=== PATIENT | male | born 1940 | race Caucasian/White ===

== ENCOUNTER 2024-10-11 10:40 | Emergency (ER) | payer OTHER, SELFPAY ==
--- NOTE | 2024-10-11 10:42 | ED.GENADUL_ITS ---
Discharge Plan Disposition Patient Disposition: Home Condition: Improving Discharge Details Clinical Impression: Acute urinary retention, Acute UTI Primary Care Provider: Jose G Espinal ED Provider: Coleman Saldana Home Meds and New Rx's Prescriptions: New cephalexin 500 mg capsule 500 mg PO BID 7 Days Qty: 14 0RF Discharge Instructions Instructions: Urinary Retention, Urinary Tract Infection, Adult ED Additional Instructions: I attempted to speak both with your urology team and your primary care doctor but was unsuccessful. I was able to consult with our urology team here. Please take Keflex as directed. Be sure to have adequate hydration over the weekend. It is imperative that you reach out to both your primary care provider and especially urology team later today to make them aware of your ER visit and need for outpatient follow-up. If you do not hear from them today or over the weekend, please contact them again first thing Monday morning. You will leave the Bhatt catheter in place until otherwise instructed by your urology team. Please watch for new or worsening symptoms including but excluded to a fever, abdominal pain, chills, back pain, decreased urinary output, and return immediately to the ER. HPI General Mode of arrival: ambulatory . Date/Time Provider Initiated Documentation: 10/11/24 10:41 . Limitations to Documentation: no limitations . Information obtained by: patient . History of Present Illness 84 year old M presents to the emergency department with the chief complaint of Urinary retention, described as moderate, with intensity rated at 6. Quality is described as aching, and is localized to the abdomen and pelvis. Patient reports no radiation. Patient started experiencing this day(s) (5) and it has been constant (Progressive). No relieving factors improve symptom(s), No exacerbating factors reported . Patient notes nausea/vomiting (Vomiting x 1 today). Patient did receive the following treatments prior to arrival, none Related Data Home Medications ?Medication ?Instructions ?Recorded ?Confirmed cephalexin 500 mg capsule 500 mg PO BID 7 days #14 caps 10/11/24 Previous Rx's ?Medication ?Instructions ?Recorded cephalexin 500 mg capsule 500 mg PO BID 7 days #14 caps 10/11/24 Allergies Allergy/AdvReac Type Severity Reaction Status Date / Time No Known Allergies Allergy Unverified 10/11/24 10:48 Review of Systems Constitutional Constitutional: Denies chills, Denies fatigue, Denies fever(s) and Denies weakness Cardiovascular Cardiovascular: Denies chest pain and Denies dyspnea Respiratory Respiratory: Denies dyspnea Gastrointestinal Gastrointestinal: Reports abdominal pain (Lower pressure), Reports constipation (No bowel movement in 5 days) and Denies nausea Genitourinary Genitourinary: Denies hematuria, Denies dysuria, Denies testicular pain, Reports urinary frequency and Reports urinary hesitancy Musculoskeletal Musculoskeletal: Denies back pain Integumentary/Breasts Skin/Breast: Denies rash Neurologic Neurologic: Denies weakness Endocrine Endocrine: Denies fatigue Hematologic/Lymphatic Hematologic/Lymphatic: Denies easy bleeding Exam Const General: cooperative, healthy appearing, comfortable and no acute distress Orientation: alert, awake and oriented x3 HENMT Head: normal to inspection, normocephalic and atraumatic Face and sinus: normal facial exam Mouth: moist mucous membranes Throat: posterior oropharynx normal Eyes General: appearance normal, both eyes and all related structures Conjunctivae: conjunctivae normal Neck Neck: normal visual inspection, full ROM, no meningeal signs, trachea midline and supple Resp Effort & Inspection: normal respiratory effort and able to speak in complete sentences Auscultation: clear to auscultation bilaterally Cardio Rate: regular rate Rhythm: regular rhythm GI Inspection: normal to inspection Palpation: not soft, not firm, no guarding and tender (Diffuse minimal lower) Auscultation: normal bowel sounds Male General Exam: Yes normal external exam Penis: normal penis Meatus: meatus normal Scrotum: scrotum normal Testes: normal Back/Spine/Pelvis Back: no CVA tenderness and No back tenderness Skin General skin exam: no rashes or lesions noted Neuro General: patient alert, patient awake, patient oriented x3, moves all extremities and no focal motor deficits Cognition: normal cognition Speech: speech normal Gait: normal gait Motor: muscle tone normal throughout Extrem General: normal to inspection, full ROM and capillary refill normal Psych Appearance: grossly normal Mental Status: mental status grossly normal Medical Decision Making This is an 84-year-old male presenting for lower abdominal pressure and urinary retention. Patient states he had stents placed in the bilateral kidneys 1 week ago at the [facility] in [place]. Procedure went well and subsequently discharged home. removed catheter as directed on Monday. Patient reports that since Monday he has had some lower abdominal pressure associated with 1 episode of vomiting today. Denies any nausea to me. States he has had multiple small episodes of voiding but feels like his bladder is not completely emptying. Denies dysuria. Denies fever. Denies back pain. No bowel movement since last Monday. Patient also reports that he is being worked up by oncology for potential prostate cancer, has an appointment on 10/22/2024. Patient reports that he is otherwise healthy and does not currently take any medications. Clinically he appears well, nontoxic. Bladder scanner reveals over 800 cc of urine. Will obtain IV access, routine screening laboratory values, urinalysis, and will place indwelling Bhatt catheter. In the meantime we will attempt to get records from the [facility] at [place]. Upon reevaluation Bhatt catheter has drained about 1000 cc of urine. Urine is dark but not grossly bloody. Patient states that he feels much better, in fact asymptomatic. Laboratory values reveal a WBC of 9.1 hemoglobin 9.9 hematocrit 29.8 platelet count of 415. Absolute neutrophils of 7.27. Creatinine 2.7 with a GFR of 22.40. Unfortunately do not know his baseline lab values. Urinalysis reveals large blood, small leuk esterase, greater than 50 red and white cells. Culture indicated. Discussed labs with patient and family, they do not know his baseline. Deny black tarry stools or bright red blood in his stools. I have not received any information regarding the patient from the [facility]. I have requested to consult with urology at the [facility]. Concern for an infected stent. Would like their input on if they would like additional imaging and antibiotic recommendations. I also attempted to reach out to his PCP Merline Lyon MD but this too unfortunately was unsuccessful. Unfortunately after a second page I still did not hear back from the urology team at the [facility] in [place]. I then paged our urology team and was able to speak with Dr. Crowe. He was reassured that the patient did not have a fever, white count, or appear toxic or septic. Patient would have likely had IV antibiotics at time of cystoscopy stent placement. Infected stent only 1 week after the procedure is unlikely. Recommends treating with oral antibiotics, believes Keflex twice daily is a reasonable choice. Unfortunately no prior records to review, no prior culture and sensitivities. Did not recommend additional imaging. Will encourage p.o. fluid intake given unknown baseline creatinine and GFR. Will hold on IV fluids as there is a national shortage. Will leave indwelling Bhatt catheter in place. Will recommend that the patient contact his urology team to make them aware of his symptoms and ER visit. He will need close outpatient follow-up. Would recommend leaving Bhatt catheter in until he is directed otherwise. Patient feels well and both patient and spouse are comfortable with this plan. Discussed the importance of watching for new or worsening symptoms such as increased pain, fever, decreased urinary output, etc. and returning immediately to the ER. After the patient has been discharged I did receive a fax from the [facility]. Most recent labs from August 28, 2024 reveal a white blood cell count of 6.4 hemoglobin 10.6 hematocrit 32.7 platelet count 375. Blood count slightly lower today but do not appear emergent. No signs of any active bleeding now. Creatinine on 08/28/2024 was 2.6, on 09/23/2024 it was 2.7, this appears to be his baseline. Further review reveals bilateral ureteral stent placement and prostate biopsy on 10/04/2024. I did request that these records get scanned into our system. Medical Records Medical records reviewed: Yes I reviewed the patient's medical records. Lab Data Lab results reviewed: Yes I reviewed the patient's lab results. Labs: 10/11/24 11:35 Urine - Reflex from [facility] Urine Culture - Pending Laboratory Tests Range/Units 10/11/24 10/11/24 11:32 11:35 WBC (4.4-10.8) 10^3/uL 9.10 RBC (4.36-5.78) 10^6/uL 3.31 L Hgb (13.5-17.5) g/dL 9.9 L Hct (40.0-50.0) % 29.8 L MCV (80-95) fL 90 MCH (27.0-33.0) pg 29.9 MCHC (32.0-36.0) % 33.2 RDW (11.8-14.1) % 13.3 Plt Count (130-400) 10^3/uL 415 H MPV (8.0-11.0) fL 9.0 Immature Gran % % 0.3 Neutrophils % % 79.9 Lymphocytes % % 7.4 Monocytes % % 12.2 Eosinophils % % 0.1 Basophils % % 0.1 Nucleated RBC % (0.0-0.3) % 0.0 Absolute Neutrophils (1.2-6.7) 10^3/uL 7.27 H Absolute Lymphocytes (1.2-3.4) 10^3/uL 0.67 L Absolute Monocytes (0.1-0.8) 10^3/uL 1.11 H Absolute Eosinophils (0.0-0.7) 10^3/uL 0.01 Absolute Basophils (0.0-0.2) 10^3/uL 0.01 Sodium (136-145) mmol/L 136 Potassium (3.5-5.1) mmol/L 3.4 L Chloride (98-107) mmol/L 92 L Carbon Dioxide (21.0-32.0) mmol/L 35.8 H Anion Gap (3-11) mmol/L 8.2 BUN (7-18) mg/dL 55 H Creatinine (0.70-1.30) mg/dL 2.7 H Est GFR (CKD-EPI 2020) (mL/min/1.73m2) 22.40 Glucose (74-106) mg/dL 117 H Calcium (8.5-10.1) mg/dL 9.1 Total Bilirubin (0.2-1.0) mg/dL 0.55 AST (15-37) U/L 23 ALT (16-63) U/L 14 L Alkaline Phosphatase (46-116) U/L 75 Total Protein (6.4-8.2) g/dL 7.1 Albumin (3.4-5.0) g/dL 3.4 Urine Color (Yellow) Yellow Urine Clarity (Clear) Cloudy Urine pH (5-8) 7.0 Ur Specific Harris (1.005-1.025) 1.015 Urine Protein (Neg-Trace) mg/dL 100 H Urine Ketones (Negative) mg/dL Negative Urine Blood (Negative) Large H Urine Nitrite (Negative) Negative Urine Bilirubin (Negative) Negative Urine Urobilinogen (Up to 0.2) mg/dL 0.2 Ur Leukocyte Esterase (Negative) Small H Urine RBC (0-2) HPF >50 H Urine WBC (0-5) HPF >50 H Ur Epithelial Cells Not Applicable Urine Crystals Not Applicable Urine Bacteria Not Applicable Urine Mucus Not Applicable Ur Culture Indicated? Yes Urine Glucose (Negative) mg/dL Negative Quality:SDOH Health Related Social Needs: No Data to Display PFSH All Active Problems (Updated 10/11/24 @ 14:22 by DEEP Booth) Acute UTI (Acute) Acute urinary retention (Acute) Social History Smoking/Tobacco Use Status: Former Tobacco Use Smoking risk assessment performed?: Yes Alcohol Intake: never Drug use: Never Substance use type: does not use Housing: house Do you feel safe at home: Yes Do you feel safe in your relationship?: Yes
[2024-10-11 10:45] VITALS: BP 130/60; PULSE 57; RESP 14; TEMP 36.4; O2SAT 98
[2024-10-11] MEDS: Lidocaine 2% Jelly 11 ML SYR (11:31)
[2024-10-11 11:41] LABS: Abs Immature Grans 0.03 10^3/uL (0.0-0.06); Absolute Basophil Count 0.01 10^3/uL (0.0-0.2); Absolute Eosinophil Count 0.01 10^3/uL (0.0-0.7); Absolute Lymphocyte Count 0.67 10^3/uL (1.2-3.4); Absolute Monocyte Count 1.11 10^3/uL (0.1-0.8); Absolute Neutrophil Count 7.27 10^3/uL (1.2-6.7); Basophils % 0.1 %; Eosinophils % 0.1 %; HCT 29.8 % (40.0-50.0); HGB 9.9 g/dL (13.5-17.5); Immature Grans % 0.3 %; Lymphocytes % 7.4 %; MCH 29.9 pg (27.0-33.0); MCHC 33.2 % (32.0-36.0); MCV 90 fL (80-95); Monocytes % 12.2 %; Neutrophils % 79.9 %; Platelet Count 415 10^3/uL (130-400); RBC 3.31 10^6/uL (4.36-5.78); RDW 13.3 % (11.8-14.1); RDW-SD 43.9 fL
[2024-10-11 11:49] LABS: Bilirubin Negative (Negative); Blood Large (Negative); Clarity Cloudy (Clear); Glucose Negative (Negative); Ketones Negative (Negative); Leukocyte Esterase Small (Negative); Nitrite Negative (Negative); Specific Gravity 1.015 (1.005-1.025); Urobilinogen 0.2 mg/dL (Up to 0.2)
[2024-10-11 11:56] LABS: C & S Indicated? Yes; RBC >50 HPF (0-2); WBC >50 HPF (0-5)
[2024-10-11 12:01] LABS: ALT 14 U/L (16-63); AST 23 U/L (15-37); Albumin 3.4 g/dL (3.4-5.0); Alkaline Phosphatase 75 U/L (46-116); Anion Gap 8.2 mmol/L (3-11); BUN 55 mg/dL (7-18); Bilirubin, Total 0.55 mg/dL (0.2-1.0); CO2 35.8 mmol/L (21.0-32.0); CREATININE 2.7 mg/dL (0.70-1.30); Calcium 9.1 mg/dL (8.5-10.1); Chloride 92 mmol/L (98-107); Glucose 117 mg/dL (74-106); Potassium 3.4 mmol/L (3.5-5.1); Sodium 136 mmol/L (136-145); Total Protein 7.1 g/dL (6.4-8.2)
[2024-10-11] MEDS: Cephalexin 500 MG CAP PO (13:33)
[2024-10-11 14:23] VITALS: BP 114/78; PULSE 74; RESP 20; TEMP 36.7; O2SAT 95
[2024-10-11 14:33] VITALS: BP 114/78; PULSE 74; RESP 20; TEMP 36.7; O2SAT 96
== END 2024-10-11 14:34 | disposition home or self-care (01) ==
PROVIDERS: Emergency Provider Physician Assistant; PCP Internal Medicine
DX: N39.0 Urinary tract infection, site not specified; R33.9 Retention of urine, unspecified; Z96.0 Presence of urogenital implants
CPT/HCPCS: 36415; 80053; 99283; 81003; 81015; 85025; 87086; 99284

== ENCOUNTER 2024-12-30 04:15 | Outpatient (CLI) | payer OTHER, SELFPAY ==
[2024-12-30 10:19] LABS: Abs Immature Grans 0.05 10^3/uL (0.0-0.06); Absolute Basophil Count 0.05 10^3/uL (0.0-0.2); Absolute Eosinophil Count 0.01 10^3/uL (0.0-0.7); Absolute Lymphocyte Count 1.06 10^3/uL (1.2-3.4); Absolute Monocyte Count 1.38 10^3/uL (0.1-0.8); Absolute Neutrophil Count 6.49 10^3/uL (1.2-6.7); Basophils % 0.6 %; Eosinophils % 0.1 %; HCT 29.9 % (40.0-50.0); HGB 9.6 g/dL (13.5-17.5); Immature Grans % 0.6 %; Lymphocytes % 11.7 %; MCH 29.2 pg (27.0-33.0); MCHC 32.1 % (32.0-36.0); MCV 91 fL (80-95); MPV 8.6 fL (8.0-11.0); Monocytes % 15.3 %; Neutrophils % 71.7 %; Platelet Count 503 10^3/uL (130-400); RBC 3.29 10^6/uL (4.36-5.78); RDW 14.9 % (11.8-14.1); RDW-SD 50.1 fL; WBC 9.04 10^3/uL (4.4-10.8)
[2024-12-30 10:54] LABS: ALT 26 U/L (16-63); AST 20 U/L (15-37); Alkaline Phosphatase 75 U/L (46-116); Anion Gap 11.2 mmol/L (3-11); BUN 50 mg/dL (7-18); Bilirubin, Total 0.4 mg/dL (0.2-1.0); CO2 27.8 mmol/L (21.0-32.0); CREATININE 2.5 mg/dL (0.70-1.30); Calcium 9.4 mg/dL (8.5-10.1); Chloride 100 mmol/L (98-107); Estimated GFR 24.56 (mL/min/1.73m2); Glucose 102 mg/dL (74-106); Potassium 4.3 mmol/L (3.5-5.1); Sodium 139 mmol/L (136-145); Total Protein 7.9 g/dL (6.4-8.2)
[2025-01-01 10:00] LABS: PSA, Ultrasensitive 15.4 ng/mL (<= 7.2)
[2025-01-03 12:16] LABS: Testosterone, Total <7.0 ng/dL (240-950)
== END 2024-12-30 04:16 | disposition home or self-care (01) ==
LOC: LBO 04:15
PROVIDERS: PCP Internal Medicine; Visit Provider Internal Medicine
DX: C61 Malignant neoplasm of prostate (principal)
CPT/HCPCS: 36415; 80053; 84153; 84403; 85025

== ENCOUNTER 2025-02-04 09:41 | Outpatient (CLI) | payer OTHER, SELFPAY ==
[2025-02-04 10:10] LABS: Abs Immature Grans 0.02 10^3/uL (0.0-0.06); Absolute Basophil Count 0.06 10^3/uL (0.0-0.2); Absolute Eosinophil Count 0.36 10^3/uL (0.0-0.7); Absolute Monocyte Count 0.87 10^3/uL (0.1-0.8); Absolute Neutrophil Count 4.26 10^3/uL (1.2-6.7); Basophils % 0.9 %; Eosinophils % 5.5 %; HCT 32.9 % (40.0-50.0); HGB 10.3 g/dL (13.5-17.5); Immature Grans % 0.3 %; Lymphocytes % 15.2 %; MCH 28.5 pg (27.0-33.0); MCHC 31.3 % (32.0-36.0); MCV 91 fL (80-95); MPV 9.7 fL (8.0-11.0); Monocytes % 13.2 %; Neutrophils % 64.9 %; Platelet Count 366 10^3/uL (130-400); RBC 3.61 10^6/uL (4.36-5.78); RDW 17.3 % (11.8-14.1); WBC 6.57 10^3/uL (4.4-10.8)
[2025-02-04 10:42] LABS: ALT 32 U/L (16-63); AST 31 U/L (15-37); Albumin 3.5 g/dL (3.4-5.0); Alkaline Phosphatase 74 U/L (46-116); Anion Gap 7.1 mmol/L (3-11); BUN 50 mg/dL (7-18); Bilirubin, Total 0.5 mg/dL (0.2-1.0); CO2 25.9 mmol/L (21.0-32.0); CREATININE 2.2 mg/dL (0.70-1.30); Calcium 9.1 mg/dL (8.5-10.1); Chloride 107 mmol/L (98-107); Estimated GFR 28.63 (mL/min/1.73m2); Glucose 100 mg/dL (74-106); Potassium 4.5 mmol/L (3.5-5.1); Sodium 140 mmol/L (136-145); Total Protein 7.1 g/dL (6.4-8.2)
[2025-02-06 10:00] LABS: PSA, Ultrasensitive 2.9 ng/mL (<= 7.2)
[2025-02-08 13:28] LABS: Testosterone, Total <7.0 ng/dL (240-950)
== END 2025-02-04 09:42 | disposition home or self-care (01) ==
LOC: LBO 09:42
PROVIDERS: PCP Internal Medicine; Visit Provider Internal Medicine
DX: C61 Malignant neoplasm of prostate (principal)
CPT/HCPCS: 36415; 80053; 84153; 84403; 85025

== ENCOUNTER 2025-03-26 02:34 | Outpatient (CLI) | payer OTHER, SELFPAY ==
[2025-03-26 08:41] LABS: Abs Immature Grans 0.02 10^3/uL (0.0-0.06); Absolute Basophil Count 0.05 10^3/uL (0.0-0.2); Absolute Eosinophil Count 0.17 10^3/uL (0.0-0.7); Absolute Lymphocyte Count 1.02 10^3/uL (1.2-3.4); Absolute Monocyte Count 0.63 10^3/uL (0.1-0.8); Absolute Neutrophil Count 6.11 10^3/uL (1.2-6.7); Basophils % 0.6 %; Eosinophils % 2.1 %; HCT 34.6 % (40.0-50.0); Immature Grans % 0.3 %; Lymphocytes % 12.8 %; MCH 29.6 pg (27.0-33.0); MCHC 31.8 % (32.0-36.0); MCV 93 fL (80-95); MPV 9.2 fL (8.0-11.0); Monocytes % 7.9 %; Neutrophils % 76.3 %; Platelet Count 334 10^3/uL (130-400); RBC 3.72 10^6/uL (4.36-5.78); RDW 16.2 % (11.8-14.1); RDW-SD 55.7 fL
[2025-03-26 09:28] LABS: ALT 36 U/L (16-63); AST 29 U/L (15-37); Albumin 3.4 g/dL (3.4-5.0); Alkaline Phosphatase 103 U/L (46-116); Anion Gap 3.9 mmol/L (3-11); BUN 41 mg/dL (7-18); Bilirubin, Total 0.4 mg/dL (0.2-1.0); CO2 30.1 mmol/L (21.0-32.0); CREATININE 2.2 mg/dL (0.70-1.30); Calcium 8.9 mg/dL (8.5-10.1); Chloride 106 mmol/L (98-107); Estimated GFR 28.46 (mL/min/1.73m2); Glucose 103 mg/dL (74-106); Potassium 4.1 mmol/L (3.5-5.1); Sodium 140 mmol/L (136-145); Total Protein 6.7 g/dL (6.4-8.2)
[2025-03-30 16:50] LABS: Testosterone, Total <7.0 ng/dL (240-950)
[2025-03-31 11:16] LABS: PSA, Ultrasensitive 1.2 ng/mL (<= 7.2)
== END 2025-03-26 02:35 | disposition home or self-care (01) ==
LOC: LBO 02:36
PROVIDERS: PCP Internal Medicine; Visit Provider Internal Medicine
DX: C61 Malignant neoplasm of prostate (principal)
CPT/HCPCS: 36415; 80053; 84153; 84403; 85025

== ENCOUNTER 2025-04-29 02:57 | Outpatient (CLI) | payer OTHER, SELFPAY ==
[2025-04-29 09:46] LABS: Abs Immature Grans 0.02 10^3/uL (0.0-0.06); HCT 37.2 % (40.0-50.0); HGB 12.1 g/dL (13.5-17.5); Immature Grans % 0.3 %; MCH 29.9 pg (27.0-33.0); MCHC 32.5 % (32.0-36.0); MCV 92 fL (80-95); MPV 9.4 fL (8.0-11.0); Platelet Count 326 10^3/uL (130-400); RBC 4.05 10^6/uL (4.36-5.78); RDW 14.0 % (11.8-14.1); RDW-SD 47.8 fL; WBC 7.72 10^3/uL (4.4-10.8)
[2025-04-29 10:23] LABS: ALT 24 U/L (16-63); AST 26 U/L (15-37); Albumin 3.6 g/dL (3.4-5.0); Alkaline Phosphatase 80 U/L (46-116); Anion Gap 8.9 mmol/L (3-11); BUN 51 mg/dL (7-18); Bilirubin, Total 0.4 mg/dL (0.2-1.0); CO2 27.1 mmol/L (21.0-32.0); Calcium 9.0 mg/dL (8.5-10.1); Chloride 106 mmol/L (98-107); Estimated GFR 26.98 (mL/min/1.73m2); Glucose 97 mg/dL (74-106); Potassium 4.3 mmol/L (3.5-5.1); Sodium 142 mmol/L (136-145); Total Protein 7.0 g/dL (6.4-8.2)
== END 2025-04-29 02:58 | disposition home or self-care (01) ==
LOC: LBO 02:57
PROVIDERS: PCP Internal Medicine; Visit Provider Internal Medicine
DX: C61 Malignant neoplasm of prostate (principal)
CPT/HCPCS: 36415; 80053; 84153; 84403; 85025

== ENCOUNTER 2025-06-10 02:33 | Outpatient (CLI) | payer OTHER, SELFPAY ==
[2025-06-10 10:12] LABS: Abs Immature Grans 0.04 10^3/uL (0.0-0.06); HCT 35.5 % (40.0-50.0); HGB 11.2 g/dL (13.5-17.5); Immature Grans % 0.4 %; MCH 28.9 pg (27.0-33.0); MCHC 31.5 % (32.0-36.0); MCV 92 fL (80-95); MPV 9.3 fL (8.0-11.0); Platelet Count 399 10^3/uL (130-400); RBC 3.87 10^6/uL (4.36-5.78); RDW 14.3 % (11.8-14.1); RDW-SD 47.5 fL; WBC 10.42 10^3/uL (4.4-10.8)
[2025-06-10 10:54] LABS: ALT 19 U/L (16-63); AST 18 U/L (15-37); Albumin 3.3 g/dL (3.4-5.0); Alkaline Phosphatase 86 U/L (46-116); Anion Gap 8.6 mmol/L (3-11); BUN 32 mg/dL (7-18); Bilirubin, Total 0.4 mg/dL (0.2-1.0); CO2 28.4 mmol/L (21.0-32.0); Calcium 9.4 mg/dL (8.5-10.1); Chloride 106 mmol/L (98-107); Estimated GFR 31.90 (mL/min/1.73m2); Glucose 102 mg/dL (74-106); Potassium 4.0 mmol/L (3.5-5.1); Sodium 143 mmol/L (136-145); Total Protein 6.6 g/dL (6.4-8.2)
== END 2025-06-10 02:34 | disposition home or self-care (01) ==
LOC: LBO 02:33
PROVIDERS: PCP Internal Medicine; Visit Provider Internal Medicine
DX: C61 Malignant neoplasm of prostate (principal)
CPT/HCPCS: 36415; 80053; 84153; 84403; 85025

== ENCOUNTER 2025-09-09 03:25 | Outpatient (CLI) | payer OTHER, SELFPAY ==
[2025-09-09 09:22] LABS: Abs Immature Grans 0.04 10^3/uL (0.0-0.06); HCT 31.7 % (40.0-50.0); HGB 10.3 g/dL (13.5-17.5); Immature Grans % 0.5 %; MCH 29.5 pg (27.0-33.0); MCHC 32.5 % (32.0-36.0); MCV 91 fL (80-95); MPV 8.9 fL (8.0-11.0); Platelet Count 406 10^3/uL (130-400); RBC 3.49 10^6/uL (4.36-5.78); RDW 13.9 % (11.8-14.1); RDW-SD 46.4 fL; WBC 8.72 10^3/uL (4.4-10.8)
[2025-09-09 09:56] LABS: ALT 15 U/L (10-49); AST 25 U/L (<34); Albumin 3.8 g/dL (3.4-5.0); Alkaline Phosphatase 65 U/L (46-116); Anion Gap 10.3 mmol/L (3-11); BUN 32 mg/dL (9-23); Bilirubin, Total 0.30 mg/dL (0.2-1.2); CO2 29.7 mmol/L (20.0-31.0); Calcium 8.8 mg/dL (8.3-10.6); Chloride 104 mmol/L (98-107); Glucose 91 mg/dL (74-106); Potassium 3.1 mmol/L (3.5-5.1); Sodium 144 mmol/L (136-145); Total Protein 6.5 g/dL (5.7-8.2)
== END 2025-09-09 03:26 | disposition home or self-care (01) ==
LOC: LBO 03:25
PROVIDERS: PCP Internal Medicine; Visit Provider Internal Medicine
DX: C61 Malignant neoplasm of prostate (principal)
CPT/HCPCS: 36415; 80053; 84153; 84403; 85025

== ENCOUNTER 2025-09-19 17:36 | Emergency (ER) | payer OTHER, SELFPAY ==
[2025-09-19] VITALS (57 sets, daily range): BP systolic 135–201; BP diastolic 59–142; PULSE 60–114; RESP 13–30; TEMP 37.2–39.4; O2SAT 88–100
--- NOTE | 2025-09-19 17:30 | RT.EKG_ITS ---
APPROVED REPORT Exam: Resting ECG Reason for Exam: possible sepsis Patient Location: E HR:87 bpm ECG Measurements Heart Rate 87 AXIS ME 139 P 55 QRSd 82 QRS -21 QT 367 T 62 QTc 439 Conclusion Sinus rhythm...normal P axis, V-rate 60- 99 Atrial premature complexes...SV complexes w/ short R-R intvls Nonspecific T abnormalities, lateral leads...T <-0.10mV, I aVL V5 V6
--- NOTE | 2025-09-19 17:30 | DI.RAD_ITS ---
Exam(s) XR PORTABLE CHEST AP EXAM: XR PORTABLE CHEST AP CLINICAL HISTORY: shortness of breath, fever TECHNIQUE: 2D digital imaging was performed of the chest. One image was obtained. An AP view was obtained. COMPARISON: No exams were available for comparison FINDINGS: MEDIASTINUM: Normal. HEART: Normal. PULMONARY VASCULATURE: Normal. LUNGS: No focal consolidating infiltrates are seen in the lungs. PLEURAL SPACE: No pleural effusion or pneumothorax. BONE:There are sclerotic foci seen in the bones consistent with metastatic disease. This is best appreciated in the glenoid region of the left scapula and multiple ribs. OTHER FINDINGS:Normal. IMPRESSION: 1. There are no focal consolidating infiltrates. 2. Sclerotic osseous metastatic disease. 3. The preliminary [facility] report was reviewed. DATA REPOSITORY: RADIATION DOSE DELIVERED:
[2025-09-19 18:03] LABS: Abs Immature Grans 0.08 10^3/uL (0.0-0.06); HCT 31.7 % (40.0-50.0); HGB 10.5 g/dL (13.5-17.5); Immature Grans % 0.5 %; MCH 28.9 pg (27.0-33.0); MCHC 33.1 % (32.0-36.0); MCV 87 fL (80-95); MPV 8.9 fL (8.0-11.0); Platelet Count 426 10^3/uL (130-400); RBC 3.63 10^6/uL (4.36-5.78); RDW 14.6 % (11.8-14.1); RDW-SD 46.5 fL; WBC 14.85 10^3/uL (4.4-10.8)
[2025-09-19 18:07] LABS: Glucose Negative (Negative)
[2025-09-19] MEDS: ACETAMINOPHEN 500 MG/50 ML BAG 200 MG IVPB ×2 (18:08→22:39)
[2025-09-19] MEDS: cefTRIAXone 2 GM/50 ML BAG IVPB (18:10)
[2025-09-19] MEDS: Normal Saline 500 ML IV (18:10)
[2025-09-19 18:24] LABS: C & S Indicated? Yes; WBC >50 HPF (0-5)
[2025-09-19 18:29] LABS: RBC Morphology Normal
[2025-09-19 18:30] LABS: ALT 12 U/L (10-49); AST 18 U/L (<34); Albumin 3.9 g/dL (3.2-5.0); Alkaline Phosphatase 75 U/L (46-116); Anion Gap 7.1 mmol/L (3-11); BUN 29 mg/dL (9-23); Bilirubin, Total 0.80 mg/dL (0.2-1.2); CO2 29.9 mmol/L (20.0-31.0); Calcium 8.7 mg/dL (8.3-10.6); Chloride 100 mmol/L (98-107); Glucose 131 mg/dL (74-106); Potassium 3.1 mmol/L (3.5-5.1); Sodium 137 mmol/L (136-145); Total Protein 6.8 g/dL (5.7-8.2)
--- NOTE | 2025-09-19 18:32 | DI.CT_ITS ---
Exam(s) CT ABDOMEN PELVIS WO EXAM: CT ABDOMEN PELVIS WO CLINICAL HISTORY: renal failure, uti. TECHNIQUE: Imaging Protocol: Axial computed tomography images with coronal and sagittal reformatted images were created and reviewed. COMPARISON: US US RENAL from 09/10/2024 FINDINGS: The examination is limited due to patient motion artifact. ABDOMEN: Lung Bases: There are bilateral basilar infiltrates present. Liver: Normal density. No measurable mass. Gallbladder and biliary tract: No radiodense calculus or biliary ductal dilation. Pancreas: Normal density, no abnormal calcifications or inflammatory process. Spleen: Normal. Kidneys: There is a right nephroureteral stent. There is no right hydronephrosis. There is a left nephroureteral stent. The proximal pigtail is seen in the proximal ureter. There is moderate dilatation of the left renal collecting system.There is no nephrolithiasis. No masses seen. Adrenal glands: No mass is seen. Lymph nodes: Within normal limits. Abdominal Aorta: Atherosclerotic calcification is seen. No aneurysmal dilatation is present. PELVIS: Bladder:Symmetric distention, no gross wall thickening. Bowel: There is diverticulosis of the colon without evidence of acute diverticulitis. There is no evidence of bowel obstruction or bowel wall thickening. There is no evidence of an appendicitis. Peritoneal cavity: There is a trace amount of fluid seen in the right pericolic gutter. No free air. Reproductive organs: Prostate gland is mildly enlarged. Bones: There are multiple sclerotic foci seen in the bones suspicious for metastatic disease. There is grade 1 anterolisthesis of L4 on L5. Soft Tissues: Findings are seen suggestive of a prior vasectomy. IMPRESSION: 1. The proximal pigtail of the left nephroureteral stent is located in the proximal left ureter. There is moderate hydronephrosis on the left. There is mild dilatation of the right nephroureteral stent. The findings may reflect non function of the stents, particularly on the left. 2. Multiple sclerotic foci in the bones consistent with metastatic disease. 3. Bilateral infiltrates in the lung bases. This may represent atelectasis or pneumonia. Please correlate clinically. 4. The preliminary [facility] report was reviewed. RADIATION DOSE DELIVERED: 320.3mGy.cm Total DLP DATA REPOSITORY: All CT scans at this facility are submitted to the National Radiology Data Registry (NRDR) Dose Index Registry (DIR) with the [employer] ([employer]). RADIATION OPTIMIZATION: All CT scans at this facility use at least one of these dose optimization techniques: automated exposure control; mA and/or kV adjustment per patient size (includes targeted exams where dose is matched to clinical indication); or iterative reconstruction.
[2025-09-19 18:35] LABS: COVID-19 PCR Negative (Negative); RSV PCR Negative (Negative)
--- NOTE | 2025-09-19 18:36 | W.ED.GENAD ---
Discharge Plan Disposition Patient Disposition: Transfer-Acute Inpatient Care Specific Acute Inpt Facility: [facility] Discharge Details Clinical Impression: Acute UTI, Acute urinary retention, Sepsis, Prostate CA, Ureteral stent present Primary Care Provider: Jose G Espinal ED Provider: Delores Puga General Date/Time Provider Initiated Documentation: 09/19/25 17:44. HPI Narrative: This 85-year-old male presents with report of fever and weakness weakness which started just prior to arrival. Patient states he felt mostly weak when he was trying to sit down and stand up from the toilet when he had to urinate. States he felt fine yesterday and was not aware he had a fever but did have chills at home. EMS reports he had rigors and route. Patient is currently receiving therapy and injectable for prostate cancer last injection was this week for patient. Denies any specific pain complaints or alteration of mental status. Glucose is 200 and route reportedly. Patient did not reportedly have any falls, called EMS secondary to weakness. Does not have an indwelling Bhatt catheter. Related Data Allergies Allergy/AdvReac Type Severity Reaction Status Date / Time No Known Allergies Allergy Unverified 10/11/24 10:48 General Stated Complaint: Fever JOSIE: 2 Exam Narrative Exam Narrative: Alert and oriented 85-year-old male who appears ill, he has no flank or abdominal tenderness. Answering questions appropriately alert and oriented x 4, lungs clear to auscultation sinus tachycardia. No rashes or lesions no meningismus. Course Vital Signs Vital signs: Vital Signs Temperature 39.4 C H 09/19/25 17:38 Pulse 98 H 09/19/25 17:38 Respiratory Rate 20 09/19/25 17:38 Blood Pressure 159/72 H 09/19/25 17:38 Pulse Oximetry 92 09/19/25 17:38 Temperature 39.4 C H 09/19/25 17:44 Temperature Source Oral 09/19/25 17:44 Pulse 76 09/19/25 18:31 Pulse 84 09/19/25 18:31 Respiratory Rate 15 09/19/25 18:31 Respiratory Effort Normal 09/19/25 18:15 Respiratory Depth Normal 09/19/25 18:15 Respiratory Pattern Normal 09/19/25 18:15 Blood Pressure 145/62 H 09/19/25 18:31 Blood Pressure Mean 95 11/28/25 18:31 Blood Pressure Position Sitting 09/19/25 17:44 Pulse Oximetry 97 09/19/25 18:31 Oxygen Delivery Method Room Air 09/19/25 18:15 Oxygen Flow Rate 0 09/19/25 18:15 Lab/Test Results Lab/Test Results: 09/19/25 17:50 Urine - Reflex from [facility] Urine Culture - Pending 09/19/25 18:04 Blood Blood Culture - Pending 09/19/25 17:45 Blood Blood Culture - Pending Laboratory Tests Range/Units 09/19/25 09/19/25 17:45 17:50 WBC (4.4-10.8) 10^3/uL 14.85 H RBC (4.36-5.78) 10^6/uL 3.63 L Hgb (13.5-17.5) g/dL 10.5 L Hct (40.0-50.0) % 31.7 L MCV (80-95) fL 87 MCH (27.0-33.0) pg 28.9 MCHC (32.0-36.0) % 33.1 RDW (11.8-14.1) % 14.6 H Plt Count (130-400) 10^3/uL 426 H MPV (8.0-11.0) fL 8.9 Immature Gran % % 0.5 Neutrophils % % 85.4 Lymphocytes % % 3.6 Monocytes % % 10.3 Eosinophils % % 0.0 Basophils % % 0.2 Nucleated RBC % (0.0-0.3) % 0.0 Absolute Neutrophils (1.2-6.7) 10^3/uL 12.68 H Absolute Lymphocytes (1.2-3.4) 10^3/uL 0.53 L Absolute Monocytes (0.1-0.8) 10^3/uL 1.53 H Absolute Eosinophils (0.0-0.7) 10^3/uL 0.00 Absolute Basophils (0.0-0.2) 10^3/uL 0.03 RBC Morphology Normal VBG Lactate (<or=2.0) mmol/L 0.9 Sodium (136-145) mmol/L 137 Potassium (3.5-5.1) mmol/L 3.1 L Chloride (98-107) mmol/L 100 Carbon Dioxide (20.0-31.0) mmol/L 29.9 Anion Gap (3-11) mmol/L 7.1 BUN (9-23) mg/dL 29 H Creatinine (0.73-1.18) mg/dL 2.17 H Est GFR (CKD-EPI 2020) (mL/min/1.73m2) 28.94 Glucose (74-106) mg/dL 131 H Calcium (8.3-10.6) mg/dL 8.7 Total Bilirubin (0.2-1.2) mg/dL 0.80 AST (<34) U/L 18 ALT (10-49) U/L 12 Alkaline Phosphatase (46-116) U/L 75 Total Protein (5.7-8.2) g/dL 6.8 Albumin (3.2-5.0) g/dL 3.9 Urine Color (Yellow) Yellow Urine Clarity (Clear) Clear Urine pH (5-8) 7.5 Ur Specific Jackson (1.005-1.025) 1.020 Urine Protein (Neg-Trace) mg/dL 100 H Urine Ketones (Negative) mg/dL Negative Urine Blood (Negative) Moderate H Urine Nitrite (Negative) Positive H Urine Bilirubin (Negative) Negative Urine Urobilinogen (Up to 0.2) mg/dL 0.2 Ur Leukocyte Esterase (Negative) Large H Urine RBC Not Applicable Urine WBC (0-5) HPF >50 H Ur Epithelial Cells Not Applicable Urine Crystals Not Applicable Urine Bacteria Not Applicable Urine Mucus Not Applicable Ur Culture Indicated? Yes Urine Glucose (Negative) mg/dL Negative Medical Decision Making Results: Patient with leukocytosis at 14,000 hypokalemia at 3.1, BUN of 29, creatinine of 2.17 urine with positive nitrates, large leukocyte esterase and greater than 50 white blood cells patient has 2 indwelling stents with severe bilateral hydroureteronephrosis concerning for nonfunction of the stents with volume overload with a distended IVC, distended bladder, lactate 0.9 Assessment and plan: Patient with acute urinary retention, able to urinate 100 cc with postvoid residual 345, 3 attempts made to pass straight cath and family refused any attempts at Bhatt catheter as they were told by urology at the [facility] that secondary to a surgical complication of Bhatt catheter cannot be placed. Patient is pending suprapubic catheter placement at the [facility] reportedly. Patient with a white blood cell count of 14,000, sinus tachycardia, and a source of infection being urinary with greater than 50 white blood cells nitrites and leukocyte esterase positive and secondary to the urinary retention, this would be an unsuccessfully treated urinary tract infection. Secondary to lack of urology at our facility currently patient with a UTI with urinary retention which we are unable to decompress, patient requires transfer to a hospital capable of urological care. I spoke with [facility], Dr. Estrada who has accepted the patient to the emergency department for assessment. Patient will be transferred for acute urinary retention with urinary tract infection meeting sepsis criteria. He is received 2 g of ceftriaxone and he did also receive 1 L of NS, however he does have a distended IVC so I will hold on additional IV fluids at this time. Patient's blood pressure has been stable. We will keep patient n.p.o. at this time pending evaluation at [facility] emergency department. He is stable for transfer at this time. PFSH All Active Problems (Updated 09/19/25 @ 21:58 by DEEP Garcia) Ureteral stent present (Acute) Prostate CA (Chronic) Sepsis (Acute) Acute urinary retention (Acute) Acute UTI (Acute) Social History Smoking/Tobacco Use Status: Former Tobacco Use Smoking risk assessment performed?: Yes Alcohol Intake: never Drug use: Never Substance use type: does not use Housing: house Do you feel safe at home: Yes Do you feel safe in your relationship?: Yes
--- NOTE | 2025-09-19 19:20 | DI.[facility]_ITS ---
PROCEDURE INFORMATION: Exam: XR Chest Exam date and time: 09/19/2025 18:31 Age: 85 years old Clinical indication: Fever and shortness of breath TECHNIQUE: Imaging protocol: Radiologic exam of the chest. Views: 1 view. COMPARISON: No relevant prior studies available. FINDINGS: Lungs: Pulmonary emphysema. There are benign, calcified pulmonary granulomas. Patchy miniscule nodules in both mid lung zones. Pleural spaces: No pleural effusion. No pneumothorax. Heart/Mediastinum: No cardiomegaly. Bones/joints: Sclerotic bony lesions are concerning for metastases. No displaced fracture. IMPRESSION: 1. Pulmonary emphysema. 2. Patchy miniscule nodules in both mid lung zones. 3. Sclerotic bony lesions are concerning for metastases. Dictated and Authenticated by: Abida Brush MD. Orderin Vivien Estrella MD
--- NOTE | 2025-09-19 19:23 | DI.VRAD_ITS ---
PROCEDURE INFORMATION: Exam: CT Abdomen And Pelvis Without Contrast Exam date and time: 09/19/2025 18:54 Age: 85 years old Clinical indication: Other: Renal failure, UTI TECHNIQUE: Imaging protocol: Computed tomography of the abdomen and pelvis without contrast. COMPARISON: US RENAL 09/10/2024 07:03 FINDINGS: Tubes, catheters and devices: Right double-J ureteral stent upper pigtail in upper calyx; left double-J ureteral stent upper pigtail below the UPJ, distal pigtail in the bladder bilaterally; there are chronic appearing dystrophic calcifications around the distal-most left ureteral stent within the bladder. Lungs: The lung bases are hyperinflated. Mild dependent subsegmental atelectasis. Liver: No mass on noncontrast imaging. Gallbladder and biliary ducts: Hazy dependent gallstones and/or sludge suspected in the gallbladder. Motion artifact. No gross biliary ductal dilation. Pancreas: 5 mm cystic structure in the proximal pancreas. Pancreas poorly assessed due to motion. Follow-up as per institutional protocol. Spleen: No splenomegaly or suspicious lesions. Adrenal glands: Suspected subcentimeter right adrenal nodule favoring an adenoma. Motion artifact. No gross left adrenal nodule. Kidneys and ureters: Severe bilateral hydroureteronephrosis. Moderate chronic left renal cortical atrophy consistent with a chronic degree of obstruction. No left nephrolithiasis. No right nephrolithiasis. Stomach and bowel: Pancolonic diverticulosis. The GI tract is generally poorly assessed due to motion. The colonic wall is poorly assessed. There are a few scattered air-fluid levels in small bowel loops without definite mechanical obstruction.. Appendix: No evidence of appendicitis. Intraperitoneal space: Trace free fluid in the rectovesical space. Vasculature: Distended IVC and iliac veins consistent with volume overload. Lymph nodes: No significantly enlarged lymph nodes on noncontrast imaging. Urinary bladder: The urinary bladder is distended. Bladder wall is upper limits of normal without definite irregular thickening on noncontrast CT. Reproductive: Moderate prostatic enlargement. 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 Chronic degenerative changes in the lumbar spine. No acute fracture or subluxation. Soft tissues: No suspicious lesions. Other findings: Motion artifact in the abdomen. IMPRESSION: 1. Right double-J ureteral stent upper pigtail in upper calyx; left double-J ureteral stent upper pigtail below the UPJ, distal pigtail in the bladder bilaterally; there are chronic appearing dystrophic calcifications around the distal-most left ureteral stent within the bladder. 2. Severe bilateral hydroureteronephrosis concerning for nonfunction of the stents. 3. Volume overload. Distended IVC. Trace free fluid in the rectovesical space. 4. Poor assessment of GI tract. Suspected minor ileus in small bowel.. 5. Additional findings as described. Dictated and Authenticated by: Abida Brush MD. Orderin Vivien Estrella MD
[2025-09-19] MEDS: Potassium Chloride 20 MEQ TABCR 40 MEQ PO (20:24)
[2025-09-19] MEDS: Normal Saline 1,000 ML 100 ML IV (21:45)
--- NOTE | 2025-09-20 13:52 | ED.FU.B_ITS ---
Date of service: 09/20/25 Time of Service: 13:52 Follow Up Plan: This patient had a positive preliminary blood culture. He also had a positive urine culture. [place] [facility] [place] I have asked healthy to coordinate care and have patient's [place] [facility] [place]
--- NOTE | 2025-09-20 13:52 | W.ED.FU ---
Date of service: 09/20/25 Time of Service: 13:52 Follow Up Plan: This patient had a positive preliminary blood culture. He also had a positive urine culture. He had been transferred to [facility] [place]. I have asked healthy to coordinate care and have patient's results faxed to [facility] [place].
--- NOTE | 2025-09-20 14:16 | NUR.NOTE ---
Access chart to print the urine culture result and the preliminary blood culture result to fax to [facility] [place] where the patient was transferred. [facility] ED fax [phone]. Nursing Note:
--- NOTE | 2025-09-21 09:09 | NUR.NOTE ---
Per Dr. Hdez, another preliminary blood culture result was faxed to [facility] [place]. Patient is now on [id number], fax# [phone]. Nursing Note:
== END 2025-09-19 23:35 | disposition short-term general hospital (02) ==
PROVIDERS: Emergency Provider Physician Assistant; PCP Internal Medicine
DX: N39.0 Urinary tract infection, site not specified (principal); R33.9 Retention of urine, unspecified; A41.9 Sepsis, unspecified organism; D72.829 Elevated white blood cell count, unspecified; E87.6 Hypokalemia
CPT/HCPCS: 36416; 80053; 82962; 87040; 87077; 87637; 93005; 96361; 96374; 96375; 96376; 99285; 71045; 74176; 81003; 81015; 83605; 85025; 87086; 87186; 93010; J0131; J0696